=== PATIENT | female | born 1950 ===

== ENCOUNTER 2022-01-16 05:34 | Inpatient (IN) | payer MEDICARE ==
[2022-01-15 09:52] VITALS: BMI 24.3
[2022-01-16] MEDS ORDERED: EPINEPHrine 1 MG/ML AMP ONE (06:30)
[2022-01-16] MEDS ORDERED: Bupivacaine PF 0.5% 30 ML VIAL ONE (06:30)
[2022-01-16] MEDS ORDERED: Bupivacaine 0.25% HCL 30 ML VIAL ONE (06:30)
[2022-01-16] MEDS ORDERED: Methylene Blue 50 MG/10 ML AMPUL ONE ×3 (06:31→09:16)
[2022-01-16] MEDS ORDERED: Neomycin-Polymyxin 1 ML AMP ONE (06:31)
[2022-01-16] MEDS ORDERED: Lidocaine 1% MPF 2 ML VIAL ONE (07:00)
[2022-01-16] MEDS ORDERED: Ondansetron PF 4 MG/2 ML Vial ONE (07:03)
[2022-01-16] MEDS ORDERED: Fentanyl 100 MCG/2 ML VIAL ONE ×4 (07:03→13:38)
[2022-01-16] MEDS ORDERED: Lidocaine 1% PF 5 ML VIAL ONE (07:03)
[2022-01-16] MEDS ORDERED: PROPOFOL 20 ML ONE (07:03)
[2022-01-16] MEDS ORDERED: Rocuronium Bromide 10 MG/ML (10ML VIAL) ONE (07:03)
[2022-01-16] MEDS ORDERED: Dexamethasone 20 MG/5 ML VIAL ONE (07:04)
[2022-01-16] MEDS ORDERED: CEFAZOLIN 2 GM VIAL ONE (07:06)
[2022-01-16] MEDS ORDERED: Midazolam HCl 2 mg/2 ml Vial ONE (07:15)
[2022-01-16] MEDS ORDERED: SUGAMMADEX SODIUM 200 MG/2 ML VIAL ONE (09:26)
[2022-01-16 10:01] LABS: Bilirubin Neg (Negative); Blood, Urine Negative (Negative); CAUTI Indications for Culture Urological Procedure; Clarity Clear (Clear); Glucose, Urine (Dipstick) Normal (Negative); Ketone, Urine Negative (Negative); Leukocyte Negative (Negative); Nitrite Negative (Negative); Protein, Urine (Dipstick) Negative (Neg-Trace); Urobilinogen Normal mg/dL (Less than 2)
[2022-01-16 10:04] LABS: Urine Culture Reflex Yes Yes
[2022-01-16 10:09] LABS: Bacteria/HPF Rare-Few HPF (None Seen); RBC/HPF 0-3 HPF (0-3); Squamous Epithelial 0-3 HPF (0-3); WBC/HPF 0-3 HPF (0-3)
[2022-01-16 10:40] LABS: SARS-CoV-2 NAA Rapid Test Not Detected (NotDetected)
[2022-01-16] MEDS ORDERED: CEFAZOLIN 1 GM VIAL ONE (12:49)
[2022-01-16 13:35] LABS: Hemoglobin 10.7 g/dL (12.0-15.5); Mean Corpuscular HGB CONC 34.9 g/dL (32.0-36.0); Mean Corpuscular Hemoglobin 31.8 pg (27.0-33.0); Mean Corpuscular Volume 91.1 fl (81.6-98.3); Mean Platelet Volume 9.8 fl (7.4-10.4); Platelet Count 280 10x3/uL (150-450); RBC Distribution Width 13.1 % (11.5-14.5); Red Blood Cell (RBC) Count 3.37 10x6/uL (3.90-5.03); White Blood Cell (WBC) Count 10.9 10x3/uL (3.5-10.5)
[2022-01-16] MEDS ORDERED: Bisacodyl 10 MG SUPP PR PRN (14:02)
[2022-01-16] MEDS ORDERED: Simethicone Chewable 80 MG TAB PO PRN (14:02)
[2022-01-16] MEDS ORDERED: diphenhydrAMINE 25 MG CAP PO PRN ×2 (14:02→15:14)
[2022-01-16] MEDS ORDERED: Ondansetron PF 4 MG/2 ML Vial IVP PRN ×2 (14:02→15:14)
[2022-01-16] MEDS ORDERED: HYDROcodone/Acetaminophen 10/325 mg Tablet PO PRN (14:02)
[2022-01-16] MEDS ORDERED: Acetaminophen 325 MG TAB PO SCH (14:02)
[2022-01-16] MEDS ORDERED: Morphine 4 MG/ML VIAL SLOW IVP PRN (14:09)
[2022-01-16] MEDS: Ibuprofen 800 MG TAB PO SCH ×2 (14:31→22:12)
[2022-01-16] MEDS ORDERED: ALPRAZolam 0.5 MG TAB PO PRN (15:01)
[2022-01-16] MEDS ORDERED: diphenhydrAMINE 50 MG/ML VIAL IM PRN (15:14)
[2022-01-16] MEDS ORDERED: HYDROmorphone 10 mg/100 ml CADD IVPB PRN (15:14)
[2022-01-16] MEDS ORDERED: Naloxone HCl 0.4 mg/ml Vial IV PRN (15:14)
[2022-01-16] MEDS ORDERED: Zolpidem Tartrate 5 MG TAB PO PRN (15:14)
[2022-01-16] MEDS ORDERED: Promethazine HCl 25 MG/ML VIAL IM PRN (15:14)
[2022-01-16] MEDS ORDERED: Communication Order-Pharmacy FS PRN (15:15)
[2022-01-16] MEDS ORDERED: HYDROmorphone/PF 10 MG in Sodium Chloride 0.9% 49 ML IVPB PRN (15:45)
[2022-01-16] MEDS: Gemfibrozil 600 MG TAB PO SCH (17:12)
[2022-01-16] MEDS ORDERED: ALPRAZolam 0.25 MG TAB PO PRN (18:38)
[2022-01-16] MEDS ORDERED: Promethazine HCl 25 MG in Sodium Chloride 0.9% 50 ML IVPB PRN (18:41)
[2022-01-16] MEDS: diphenhydrAMINE 50 MG/ML VIAL IVP PRN (19:37)
[2022-01-16] MEDS: Lactated Ringer's 1,000 ML IV SCH (20:00)
[2022-01-16] MEDS: CEFAZOLIN 2 GM in Sodium Chloride 0.9% 100 ML IVPB SCH (22:12)
[2022-01-16] MEDS: Ezetimibe 10 MG TAB PO SCH (22:13)
[2022-01-17] MEDS: diphenhydrAMINE 50 MG/ML VIAL IVP PRN ×2 (02:05→08:14)
[2022-01-17] MEDS: Lactated Ringer's 1,000 ML IV SCH ×4 (02:30→21:20)
[2022-01-17] MEDS: Ibuprofen 800 MG TAB PO SCH ×3 (05:55→21:15)
[2022-01-17] MEDS: CEFAZOLIN 2 GM in Sodium Chloride 0.9% 100 ML IVPB SCH ×2 (05:55→13:16)
[2022-01-17 05:57] LABS: Hemoglobin 9.4 g/dL (12.0-15.5); Mean Corpuscular HGB CONC 34.1 g/dL (32.0-36.0); Mean Corpuscular Hemoglobin 31.5 pg (27.0-33.0); Mean Corpuscular Volume 92.6 fl (81.6-98.3); Platelet Count 234 10x3/uL (150-450); Red Blood Cell (RBC) Count 2.98 10x6/uL (3.90-5.03); White Blood Cell (WBC) Count 7.8 10x3/uL (3.5-10.5)
[2022-01-17] MEDS: Gemfibrozil 600 MG TAB PO SCH ×2 (08:00→18:17)
[2022-01-17] MEDS: Vit A,C & E/Lutein/Minerals Tablet PO SCH (08:19)
[2022-01-17] MEDS: Cyanocobalamin (Vitamin B-12) 1,000 MCG TAB PO SCH (08:19)
[2022-01-17] MEDS: Magnesium Oxide 400 MG TAB PO SCH (09:00)
[2022-01-17] MEDS ORDERED: HYDROcodone/Acetaminophen 10/325 mg Tablet PO PRN (17:15)
[2022-01-17] MEDS: traMADol HCl 50 MG TAB PO PRN (18:41)
[2022-01-17] MEDS: diphenhydrAMINE 25 MG CAP PO PRN (18:42)
[2022-01-17] MEDS: Ezetimibe 10 MG TAB PO SCH (21:15)
[2022-01-18] MEDS: diphenhydrAMINE 50 MG/ML VIAL IVP PRN (02:58)
[2022-01-18] MEDS: traMADol HCl 50 MG TAB PO PRN ×2 (05:15→08:59)
[2022-01-18] MEDS: Ibuprofen 800 MG TAB PO SCH ×2 (05:15→14:10)
[2022-01-18 05:19] LABS: Hemoglobin 8.7 g/dL (12.0-15.5); Mean Corpuscular HGB CONC 33.5 g/dL (32.0-36.0); Mean Corpuscular Hemoglobin 31.3 pg (27.0-33.0); Mean Corpuscular Volume 93.5 fl (81.6-98.3); Mean Platelet Volume 10.2 fl (7.4-10.4); Platelet Count 198 10x3/uL (150-450); RBC Distribution Width 12.8 % (11.5-14.5); Red Blood Cell (RBC) Count 2.78 10x6/uL (3.90-5.03); White Blood Cell (WBC) Count 5.8 10x3/uL (3.5-10.5)
[2022-01-18] MEDS: Lactated Ringer's 1,000 ML IV SCH (05:20)
[2022-01-18] MEDS ORDERED: Ferrous Sulfate 325 MG TAB PO SCH (08:00)
[2022-01-18] MEDS: Gemfibrozil 600 MG TAB PO SCH (08:09)
[2022-01-18] MEDS: Cyanocobalamin (Vitamin B-12) 1,000 MCG TAB PO SCH (08:11)
[2022-01-18] MEDS: Magnesium Oxide 400 MG TAB PO SCH (08:12)
[2022-01-18] MEDS: Vit A,C & E/Lutein/Minerals Tablet PO SCH (08:13)
[2022-01-18 11:47] VITALS: BP 126/57; TEMP 98.7
[2022-01-18] MEDS: diphenhydrAMINE 25 MG CAP PO PRN (14:10)
== END 2022-01-18 15:00 | disposition home or self-care (01) | DRG 743 ==
LOC: CSHSDC 05:34 → CSHPED 07:23 → OBSVTOIN 14:02
PROVIDERS: ADMIT Obstetrics & Gynecology; ATTEND Obstetrics & Gynecology
PROC: 0UT9FZZ Resection of Uterus, Via Natural or Artificial Opening With Percutaneous Endoscopic Assistance (ICD-10-PCS; principal; 2022-01-16)
PROC: 0UT2FZZ Resection of Bilateral Ovaries, Via Natural or Artificial Opening With Percutaneous Endoscopic Assistance (ICD-10-PCS; 2022-01-16)
PROC: 0UT7FZZ Resection of Bilateral Fallopian Tubes, Via Natural or Artificial Opening With Percutaneous Endoscopic Assistance (ICD-10-PCS; 2022-01-16)
PROC: 8E0W4CZ Robotic Assisted Procedure of Trunk Region, Percutaneous Endoscopic Approach (ICD-10-PCS; 2022-01-16)
PROC: 0UQF4ZZ Repair Cul-de-sac, Percutaneous Endoscopic Approach (ICD-10-PCS; 2022-01-16)
PROC: 0JQC0ZZ Repair Pelvic Region Subcutaneous Tissue and Fascia, Open Approach (ICD-10-PCS; 2022-01-16)
PROC: 0UQF0ZZ Repair Cul-de-sac, Open Approach (ICD-10-PCS; 2022-01-16)
PROC: 0TJB8ZZ Inspection of Bladder, Via Natural or Artificial Opening Endoscopic (ICD-10-PCS; 2022-01-16)
DX: N81.6 Rectocele (principal); N81.3 Complete uterovaginal prolapse; Z20.822 Contact with and (suspected) exposure to COVID-19; F41.9 Anxiety disorder, unspecified; E78.00 Pure hypercholesterolemia, unspecified; Z80.3 Family history of malignant neoplasm of breast; Z88.2 Allergy status to sulfonamides; Z79.899 Other long term (current) drug therapy
CPT/HCPCS: 36415; 81001; 85027; 87086; 88307; C1713; C1771; C1776; J0171; J0690; J1100; J1170; J1200; J2250; J2270; J2405; J2704; J3010; J3490; J7120; Q9968; S0020; U0002